=== PATIENT | female | born 1975 | race American Indian/Alaskan Native ===

== ENCOUNTER 2017-09-13 15:23 | Emergency (ER) | payer SELFPAY ==
[2017-09-13 15:28] VITALS: BP 137/86; PULSE 100; RESP 17; TEMP 98.4; O2SAT 100
--- NOTE | 2017-09-13 15:46 | C.PDOC ---
History Of Present Illness 41 yo female w/PMHx of L-spine herniated disc come in for evaluation of Right sided buttock pain radiating down to Right leg gradually developed for past 2 days after " slipped ". Pt reports, pain is worse with movement. Admits, similar sx in past. Pt reports, " last time was treated with Medrolpack, flexeril and percocet". Otherwise, pt denies head injury, LOC, syncope, headache , neck pain, abd. pain, N/V, UTI sx, saddle anesthesia, incontinence, denies new weakness, sensory or vascular deficits to Right leg. Ambulate to Ed for evaluation, appears comfortable, not in any apparent distress or severe pain. (Sirena Wong) History Per: Patient Onset/Duration Of Symptoms: Gradual Time Seen by Provider: 09/13/17 15:28 Chief Complaint (Nursing): Back Pain Past Medical History Reviewed: Historical Data, Nursing Documentation, Vital Signs - Medical History PMH: Back Problems Other PMH: Obese Family History: States: No Known Family Hx - Social History Hx Alcohol Use: No Hx Substance Use: No - Immunization History Hx Tetanus Toxoid Vaccination: No Hx Influenza Vaccination: No Hx Pneumococcal Vaccination: No Vital Signs: Last Vital Signs Temp 98.4 F 09/13/17 15:26 Pulse 100 H 09/13/17 15:26 Resp 17 09/13/17 15:26 BP 137/86 09/13/17 15:26 Pulse Ox 100 09/13/17 17:27 Review Of Systems Except As Marked, All Systems Reviewed And Found Negative. Constitutional: Negative for: Fever, Chills ENT: Negative for: Throat Pain Respiratory: Negative for: Cough, Shortness of Breath Gastrointestinal: Negative for: Nausea, Vomiting, Abdominal Pain, Diarrhea Genitourinary: Negative for: Dysuria, Incontinence Musculoskeletal: Positive for: Back Pain. Negative for: Neck Pain Skin: Negative for: Rash, Bruising Neurological: Negative for: Weakness, Numbness, Altered Mental Status, Headache , Dizziness Physical Exam - Physical Exam Appears: Well, Non-toxic, No Acute Distress Skin: Normal Color, Warm, Dry, No Rash Head: Normacephalic Eye(s): bilateral: PERRL Nose: No Flaring, No Discharge Oral Mucosa: Moist Throat: No Erythema Neck: Supple Gastrointestinal/Abdominal: Soft, No Tenderness, No Distention, No Guarding Back: No CVA Tenderness, No Vertebral Tenderness, Paraspinal Tenderness (Right gluteal tenderness extend down to Right lateral thigh) Extremity: Normal ROM, No Pedal Edema, No Calf Tenderness (B/L), No Deformity, No Swelling Neurological/Psych: Oriented x3, Normal Speech, Normal Motor, Normal Sensation, Normal Reflexes ED Course And Treatment - Laboratory Results Urine POC: Negative O2 Sat by Pulse Oximetry: 100 Pulse Ox Interpretation: Normal Progress Note: After my initial evaluation, pain management and treatment options were discussed with patient, except percocet. Pt refused, " wish to speak with other doctor". Pt was seen by and treatment plan was discussed with patient as well, percocet-free. Pt was offered Gabapentin, Lidocaine patch as well steroids, muscle relaxant, offered multiple different options available in ED but narcotic . Pt refused all treament options offered in ED, was requesting only percocet. Pt left without discharges and prescription. Suspition for drug seeking behaviour. On re-eval, pt is afebrile , hemodynamicaly stable. Non-toxic. Ambulatory in ED with stable gait. Neurologicaly intact. Pt was advised to F/U with PMD, PM in 1-2 days for re- evaluation and further tx as need. Medical Decision Making Medical Decision Making: I also evaluated the patient with DEJAN Wong. The patient was insisting on receiving Percocet because that worked for her pain 1 year ago. I explained to the patient there are more effective medications for pain (non-opioid options) that we would like to prescribe her instead--especially considering the risks associated with Percocet. I also explained that her pain seems to be nerve related and that gabepentin plus a medrol dosepack would be more effective w/o carrying the risks associated with opioids (Percocet). She refused to take these prescriptions and states that she will be writing a letter of complaint. ( Sage Bang Jr.) Disposition Counseled Patient/Family Regarding: Studies Performed, Diagnosis, Need For Followup, Rx Given - Disposition Disposition Time: 15:57 - Disposition Referrals: [facility] [Outside] [facility] [Provider Group] [facility] [Provider Group] Disposition: HOME/ ROUTINE Condition: STABLE Additional Instructions: Light duty to lower back area, avoid heavy lifting, bending forwards for 1-2 weeks Take pain medication as prescribed Follow up with PMD, pain management in 1-2 days for re-evaluation. Return to ED if nay worsening or new changes. Prescriptions: Cyclobenzaprine [Cyclobenzaprine HCl] 10 mg PO TID #10 tab Gabapentin [Neurontin] 300 mg PO TID #14 cap Methylprednisolone [Medrol Dose Pack (21 tabs)] 4 mg PO DAILY #21 mg Instructions: Sci[employer] Forms: [employer] (Ukrainian) - Clinical Impression Clinical Impression: Lumbar radiculopathy
[2017-09-13 16:00] LABS: SQUAMOUS EPITHIAL 1 /hpf (0-5); URINE BILIRUBIN NEGATIVE (NEGATIVE); URINE BLOOD NEGATIVE (NEGATIVE); URINE CALCIUM OXALATE CRYSTALS OCC /hpf (<OCC); URINE CLARITY Clear (Clear); URINE COLOR Straw (YELLOW); URINE GLUCOSE (UA) NORMAL (Normal); URINE LEUKOCYTE ESTERASE NEG Leu/uL (Negative); URINE PROTEIN NEGATIVE (NEGATIVE)
== END 2017-09-13 16:16 | disposition home or self-care (01) ==
LOC: C.ER 15:23
DX: M54.16 Radiculopathy, lumbar region (principal)